=== PATIENT | female | born 1945 | race Caucasian/White ===

== ENCOUNTER 2021-04-25 13:19 | Emergency (ER) | payer MEDICARE, MEDICAID, SELFPAY ==
[~2021-04-25] VITALS: Ht 154.9 cm; Wt 56.7 kg
[2021-04-25 13:29] VITALS: BP_SYST 138
[2021-04-25] MEDS ORDERED: ONDANSETRON 4 MG ODT TAB PO ONE (14:00)
[2021-04-25] MEDS ORDERED: ACETAMINOPHEN 500 MG TABLET PO ONE (14:00)
[2021-04-25] MEDS ORDERED: MORPHINE 4 MG INJ. 4 MG/ML VIAL IM ONE (14:00)
[2021-04-25] MEDS ORDERED: ACET-2634 PO (14:35)
[2021-04-25] MEDS ORDERED: NAPR-688 PO (14:35)
[2021-04-25 14:57] VITALS: BP_SYST 132
== END 2021-04-25 14:57 | disposition home or self-care (01) ==
LOC: SED 13:19
DX: S80.02XA Contusion of left knee, initial encounter (principal); S80.01XA Contusion of right knee, initial encounter; I10 Essential (primary) hypertension; Z88.1 Allergy status to other antibiotic agents; W01.0XXA Fall on same level from slipping, tripping and stumbling without subsequent striking against object, initial encounter; Y93.9 Activity, unspecified; Y92.9 Unspecified place or not applicable; Y99.9 Unspecified external cause status
CPT/HCPCS: 29505; 73560; 96372; 99283; J2270; Q0162; 99284

== ENCOUNTER 2023-05-27 18:15 | Emergency (ER) | payer OTHER, MEDICAID ==
[~2023-05-27] VITALS: Ht 144.8 cm; Wt 54.4 kg
[~2023-05-27 18:15] MED LIST: ACET-2634 PO; NAPR-688 PO
[2023-05-27 19:24] VITALS: BP_SYST 145; PULSE 100; RESP 16; TEMP 98.8; O2SAT 95
[2023-05-27 21:01] LABS: INFLUENZA TYPE A Negative (NEGATIVE); INFLUENZA TYPE B NEGATIVE (NEGATIVE)
[2023-05-27] MEDS ORDERED: CEFU250T85 PO (21:08)
[2023-05-27 21:30] VITALS: BP_SYST 145; PULSE 100; RESP 16; TEMP 98.8; O2SAT 95
== END 2023-05-27 21:30 | disposition home or self-care (01) ==
LOC: SED 18:15
DX: J40 Bronchitis, not specified as acute or chronic (principal); R05.9 Cough, unspecified; J02.9 Acute pharyngitis, unspecified; R09.89 Other specified symptoms and signs involving the circulatory and respiratory systems; I10 Essential (primary) hypertension; Z88.5 Allergy status to narcotic agent; Z79.899 Other long term (current) drug therapy; Z20.822 Contact with and (suspected) exposure to COVID-19
CPT/HCPCS: 36415; 71045; 99284